=== PATIENT | female | born 1975 | race Caucasian/White ===

== ENCOUNTER 2017-06-14 11:05 | Inpatient (IN) | payer BC, OTHER ==
[~2017-06-14] VITALS: Ht 175.3 cm; Wt 63.5 kg
[2017-06-14] MEDS ORDERED: MAG HYDROX/AL HYDROX/SIMETH 30 ML LIQUID UDC PO PRN (21:15)
[2017-06-14] MEDS ORDERED: diphenhydrAMINE 50 MG CAPSULE PO PRN (21:15)
[2017-06-14] MEDS ORDERED: ACETAMINOPHEN 325 MG TABLET PO PRN (21:15)
[2017-06-14] MEDS ORDERED: HYDROXYZINE PAMOATE 25 MG CAPSULE PO PRN (21:15)
[2017-06-14] MEDS ORDERED: ONDANSETRON 4 MG/2 ML VIAL IM PRN (21:15)
[2017-06-14] MEDS ORDERED: LORAZEPAM 2 MG/1 ML VIAL IM PRN (21:15)
[2017-06-14] MEDS ORDERED: hydrALAZINE HCL 50 MG TABLET PO PRN (21:15)
[2017-06-14] MEDS ORDERED: MAGNESIUM HYDROXIDE 30 ML LIQUID UDC PO PRN (21:15)
[2017-06-14] MEDS ORDERED: LORAZEPAM 1 MG TABLET PO PRN (21:15)
[2017-06-14] MEDS ORDERED: LOPERAMIDE HCL 2 MG CAPSULE PO PRN ×2 (21:15)
[2017-06-14] MEDS ORDERED: MIRALAX 17 GM POWD.PACK PO PRN (21:15)
[2017-06-14] MEDS ORDERED: ONDANSETRON ODT 4 MG TAB.RAPDIS SL PRN (21:15)
[2017-06-14 21:50] VITALS: BP 126/75
--- NOTE | 2017-06-14 21:50 | NUR ---
Pre-Admission Pre-admission assessment performed in the intake department of [facility]. Pt is A&O x4. She uses a wheelchair brought from home due to weakness and unsteady gait r/t postural orthostatic tachycardia syndrome. She does not appear intoxicated and answers questions appropriately. Vital signs are B/P 126/74, HR 80, RR 16, O2 sat 100%, T 98.3, pain 0/10. She reports that she has been using Valium 10mg per day. Last used 5mg at 2130. Pt denies seizure history. [facility]
[2017-06-14] MEDS ORDERED: LORAZEPAM 1 MG TABLET PO SCH (22:30)
[2017-06-14 22:50] LABS: *URINE HCG, QUAL NEGATIVE (NEGATIVE)
[2017-06-14 22:59] LABS: *AMPHETAMINE, URINE NEGATIVE (NEGATIVE); *BARBITURATE, URINE NEGATIVE (NEGATIVE); *CANNABINOID, URINE NEGATIVE (NEGATIVE); *COCCAINE, URINE NEGATIVE (NEGATIVE); *OPIATE, URINE NEGATIVE (NEGATIVE); *PHENCYCLIDINE SCREEN,URINE NEGATIVE (NEGATIVE)
--- NOTE | 2017-06-14 23:15 | NUR ---
ADMISSION Pt is a 42 yo female who arrived on the [facility] at 2210 on 06/14/17 for medically supervised detox. She is A&O x4 and uses a wheelchair due to weakness and unsteady gait. She is ordered a 1:1 sitter for safety. Pt ambulates short distances with assistance. Body check performed by 2 SENIOR MARKET RESEARCH ANALYST's and skin check performed by nurse. Pt is cooperative and answers all questions appropriately. She has NKA, is full code status, and on a regular. Pt reports having wheat and dairy intolerance. She has a flat affect, depressed mood, and is tearful at times. Vital signs in intake are B/P 126/74, HR 80, RR 16, O2 sat 100%, T 98.3, pain 0/10. She is 5'9" and weighs 140lb. She reports PMH of postural orthostatic tachycardia syndrome diagnosed 07/2016, right carotid artery tear 2011, stroke 2011, right carotid artery stents x2 2011, gallstones, gastroparesis, sinus surgery, depression, anxiety, and panic attacks. Pt was in the ER 2x in the past one week due to panic attacks. She denies history of seizures. Pt states that she takes digestive enzymes at home but cannot recall the name. Lung sounds clear, PERRLA, brisk capillary refill, bowel sounds present, skin is warm, dry, and intact. Last BM was 06/13/17 and LMP was 05/22/17. Pt denies SI/HI. History of Use 1) Valium 10mg per day for the past 8 months. Last used 5mg at today at 2130 with a total of 10mg for the day. Pt has used BZD's since 05/2016. This is the patient's first time in treatment. Pt has not had a period of sobriety since starting BZD's. She does not smoke cigarettes. She decided to come to treatment because "It's been very hard on me, I'm getting weaker, I'm going nowhere". 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 Primary care physician is Dr. Eliane Soliman at [place]. CIWA on admission is 5. MD aware of patient's admission. She was educated regarding use of the call light and all questions answered. Fall and seizure precautions ordered. Bed is down with call light in reach.
[2017-06-14 23:30] VITALS: BP 107/63
[2017-06-14 23:34] LABS: ETHANOL < 3 MG/DL (0-0)
[2017-06-14 23:39] LABS: ALANINE AMINOTRANSFERASE 27 U/L (14-59); ALKALINE PHOSPHATASE 89 U/L (50-136); ASPARTATE AMINOTRANSFERASE 11 U/L (15-37); CARBON DIOXIDE 28 mmol/L (21-32); CHLORIDE 103 mmol/L (98-107); CREATININE 0.9 mg/dL (0.6-1.3); GLUCOSE 89 mg/dL (74-106); MAGNESIUM 2.1 mg/dL (1.8-2.4); POTASSIUM 3.5 mmol/L (3.5-5.1); TOTAL PROTEIN, SERUM 7.2 g/dL (6.4-8.2); UREA NITROGEN, BLOOD 18 mg/dL (7-18)
[2017-06-15] VITALS: BP 107/63
[2017-06-15 00:01] LABS: BASOPHILS % (AUTO) 0.5 % (0.0-2.0); EOSINOPHILS # (AUTO) 0.1 K/uL (0.0-0.7); EOSINOPHILS % (AUTO) 0.7 % (0.0-7.0); HEMATOCRIT 41.2 % (37-47); HEMOGLOBIN 14.5 G/DL (12.0-16.0); LYMPHOCYTES # (AUTO) 1.8 K/UL (0.8-4.8); LYMPHOCYTES % (AUTO) 23.7 % (20.5-51.5); MEAN CORPUSCULAR HEMOGLOBIN 31.3 UUG (27.0-31.0); MEAN CORPUSCULAR HGB CONC 35 g/dL (32.0-37.0); MONOCYTES # (AUTO) 0.6 K/UL (0.1-1.30); MONOCYTES % (AUTO) 7.2 % (0.0-11.0); NEUTROPHILS # (AUTO) 5.2 K/UL (1.8-8.9); NEUTROPHILS % (AUTO) 67.9 % (38.5-71.5); PLATELET COUNT (AUTO) 180 K/UL (150-450); RED BLOOD CELL COUNT(AUTO) 4.63 MIL/UL (4.2-5.4); WHITE BLOOD COUNT (AUTO) 7.7 K/UL (4.0-11.2)
[2017-06-15 00:03] LABS: THYROID STIMULATING HORMONE 2.885 mIU/mL (0.358-3.740)
[2017-06-15 04:00] VITALS: BP 118/68
[2017-06-15] MEDS ORDERED: LORAZEPAM 1 MG TABLET ONE (04:35)
[2017-06-15] MEDS ORDERED: CYAN10009 PO (06:03)
[2017-06-15] MEDS ORDERED: CHOL400T58 PO (06:03)
--- NOTE | 2017-06-15 07:15 | NUR ---
Start of shift note SBAR report rcv'd. Pt was admitted for benzo dependence. Pt states that she has NKDA, but an intolerance to wheat and dairy. Pt has a PMHx of postural orthostatic tachycardia syndrome, carotid artery tear in 2011, stroke in 2011, carotid artery stent in 2012, gallstones, gastropareis, anxiety, depression, and panic attacks. Pt is on a 1:1 for safety and uses her own personal wheel chair. Pt is scheduled to start a 4 day ativan taper. Per report, pt did not have any PRN medications over night. At this time, pt is resting in bed, sitter at bedside, no complaints at this time. Will continue to monitor pt. All needs addressed at this time.
[2017-06-15 08:00] VITALS: BP 107/66
[2017-06-15] MEDS: MULTIVITAMINS,THERAPEUTIC TABLET PO SCH (08:52)
[2017-06-15] MEDS ORDERED: LORAZEPAM 1 MG TABLET PO SCH (09:00)
[2017-06-15] MEDS ORDERED: TUBERCULIN,PURIF.PROT.DERIV. 5 TU/0.1 ML TEST ID ONE (09:00)
[2017-06-15 12:00] VITALS: BP 125/74
[2017-06-15] MEDS ORDERED: GABAPENTIN 300 MG CAPSULE PO SCH ×2 (15:00→21:00)
[2017-06-15 16:00] VITALS: BP 106/66
--- NOTE | 2017-06-15 18:15 | NUR ---
MD communication Pt requested to have her digestive enzyme pills. Dr Luna notified, ordered for one time order of 1 tab of her digestive enzymes PO x 1 now. Orders entered, MD is driving and unable to enter orders.
[2017-06-15] MEDS ORDERED: HOME MED MISCELLANEOUS PO ONE (18:30)
--- NOTE | 2017-06-15 18:33 | NUR ---
communication Pt requesting to have "a smaller dose of gabapentin tonight". Dr Luna notified, ordered to hold gabapentin 300mg PO tonight, and to administer gabapentin 200mg PO HS x 1. Orders entered, MD unable to enter orders d/t driving.
[2017-06-15] MEDS ORDERED: PATIENT MAY USE OWN MED- MD OK PO ONE (19:00)
--- NOTE | 2017-06-15 19:19 | NUR ---
End of shift note Pt was admitted for benzo dependence. Pt states that she has NKDA, but an intolerance to wheat and dairy,however she states she can tolerate certain foods with wheat or dairy. Pt has a PMHx of postural orthostatic tachycardia syndrome, carotid artery tear in 2011, stroke in 2011, carotid artery stent in 2012, gallstones, gastropareis, anxiety, depression, and panic attacks. Pt is on a 1:1 for safety and uses her own personal wheel chair. Pt was able to get up and ambulate several times during the shift to the bathroom and shower with assistance. Pt is scheduled to discharge. Pt is on PRN medication to manage her s/s of withdrawal. Pt is resting in bed, pt has no complaints at this time. SBAR report endorsed to nurse.
--- NOTE | 2017-06-15 19:45 | NUR ---
START OF SHIFT Received report from day shift nurse. Pt lying in bed watching TV with a 1:[address] for safety due to weakness and unsteady gait. She is a 42 yo female admitted to [facility] on 06/14 for BZD dependence. NKA, full code status, and on a regular diet. Pt does report dairy and wheat intolerance. She ambulates short distances with assistance and uses a wheelchair as needed. PMH of postural orthostatic tachycardia syndrome, carotid artery tear 2011, stroke 2011, carotid artery stent x2 2011, gallstones, gastroparesis, anxiety, depression, and panic attacks. On admission she reported using Valium 10mg per day. Ativan taper discontinued during the day. PRN Ativan available. She reports headache and anxiety. Fall and seizure precautions in place. Bed is down with call light in reach.
[2017-06-15 20:00] VITALS: BP 134/78
[2017-06-15] MEDS: LORAZEPAM 1 MG TABLET PO PRN (20:07)
--- NOTE | 2017-06-15 20:10 | NUR ---
PRN Ativan administration Pt reports anxiety and headache. She states headache is r/t BZD withdrawal. Denies the need for pain medication and prefers a cold pack. CIWA 7. PRN Ativan administered.
[2017-06-15] MEDS ORDERED: GABAPENTIN 100 MG CAPSULE PO ONE (21:00)
--- NOTE | 2017-06-15 21:10 | NUR ---
PRN Ativan reassessment PRN Ativan effective. Pt is lying in bed resting with eyes closed. Respirations even and unlabored. Safety measures in place.
[2017-06-16] VITALS: BP 118/64
--- NOTE | 2017-06-16 | NUR ---
0000 CIWA deferred CIWA ordered Q4HWA. Pt is lying in bed resting with eyes closed. Vital signs obtained. Safety measures in place.
[2017-06-16 04:00] VITALS: BP 105/59
--- NOTE | 2017-06-16 04:00 | NUR ---
0400 CIWA deferred CIWA ordered Q4HWA. Pt is lying in bed resting with eyes closed. Vital signs obtained. Safety measures in place.
--- NOTE | 2017-06-16 07:10 | NUR ---
END OF SHIFT Report provided to day shift nurse. Pt lying in bed resting with a 1:[address] for safety[address] She is a 42 yo female admitted to [facility] on 06/14 for BZD dependence. NKA, full code status, and on a regular diet. Pt does report dairy and wheat intolerance. PMH of postural orthostatic tachycardia syndrom, carotid artery tear 2011, stroke 2011, carotid artery stent x2 2011, gallstones, gastroparesis, anxiety, depression, and panic attacks. On admission she reported using Valium 10mg per day. Taper was discontinued and PRN Ativan is available. Last CIWA was 7. PRN Ativan administered. She drank 950mL and slept for 9 hours. Fall and seizure precautions in place. Bed is down with call light in reach.
--- NOTE | 2017-06-16 07:43 | NUR ---
BEGINNING OF SHIFT Patient endorsement report received from night auditor nurse, all pertinent information discussed. patient is a 42 year old female admitted on: 06/14/2017 with admitting Dx: bzo dependence. Patient currently under close observation, no ongoing taper, will monitor for s/sx of withdrawal closely. Patient continues on 1:1 as ordered for safety precautions. Per night auditor patient patient received PRN Valium, per night auditor medications were effective, patient slept for 9 hours. patient with last ciwa score of: 7. patient received awake, alert and oriented x4, educated regarding plan of care for the day and medication regimen with good verbal understanding. Safety measures in place. call light kept with in reach, will continue to monitor.
[2017-06-16 08:11] LABS: HEPATITIS B SURFACE AG Negative (Negative)
[2017-06-16 08:42] VITALS: BP 125/69
[2017-06-16] MEDS: LORAZEPAM 1 MG TABLET PO PRN (08:48)
[2017-06-16] MEDS: MULTIVITAMINS,THERAPEUTIC TABLET PO SCH (08:48)
--- NOTE | 2017-06-16 08:48 | NUR ---
PRN ATIVAN Patient presented with: tremors that can be felt but nto seen, mild sweating, and moderate anxiety and mild restlessness with ciwa score of: 9, per MD orders patient was administered Ativan 1 mg PO as ordered, will monitor effectiveness of medication.
[2017-06-16] MEDS ORDERED: GABAPENTIN 300 MG CAPSULE PO SCH (09:00)
[2017-06-16] MEDS ORDERED: PATIENT MAY USE OWN MED- MD OK PO SCH ×2 (09:00)
[2017-06-16] MEDS ORDERED: LORAZEPAM 1 MG TABLET PO SCH (09:00)
--- NOTE | 2017-06-16 09:48 | NUR ---
ATIVAN REASSESSMENT medication effective, decrease in ciwa score. current ciwa score of: 5 presenting with: tremors that can be felt but not seen, barely sweating and anxiety with ciwa score of: 5, will continue to monitor.
[2017-06-16 13:02] VITALS: BP 120/71
[2017-06-16] MEDS: [UNRECOGNIZED DRUG - OTHER] PO SCH ×2 (13:30→17:52)
[2017-06-16] MEDS: GABAPENTIN 100 MG CAPSULE PO SCH ×2 (14:10→20:54)
--- NOTE | 2017-06-16 16:13 | NUR ---
Therapist prompted client about group times. Client stated she most likely won't go to groups because it is "over stimulating" for her.
[2017-06-16 17:33] VITALS: BP 112/75
[2017-06-16] MEDS ORDERED: DIPH50CA37 PO (17:36)
[2017-06-16] MEDS ORDERED: GABA-532 PO (17:36)
[2017-06-16] MEDS ORDERED: IBUP-1953 PO (17:36)
[2017-06-16] MEDS ORDERED: HYDR-3895 PO (17:36)
[2017-06-16] MEDS: IBUPROFEN 400 MG TABLET PO PRN (17:52)
--- NOTE | 2017-06-16 17:52 | NUR ---
PRN MOTRIN Patient c/o pain 02/20, administered Motrin as ordered, will monitor effectiveness of medication.
--- NOTE | 2017-06-16 18:52 | NUR ---
MOTRIN REASSESSMENT Patient reports medication effective, current pain level 2/10, tolerable as per patient, will continue to monitor.
--- NOTE | 2017-06-16 18:58 | NUR ---
END OF SHIFT Patient alert and oriented x4, vital signs were stable during shift. Patient compliant with therapeutic plan of care during shift. Patient currently with no ongoing taper, was under close observation during shift. Patient is scheduled to be discharged tomorrow morning, noted self motivated towards sobriety. During shift administered PRN Ativan as ordered, medication effective. 0900 assessment patient presented with: tremors that can be felt but not seen, mild sweats, and moderate anxiety, and mild restlessness with ciwa score of: 9; 1300 assessment patient presented with: tremors that can be felt but not seen, barely sweating and mild anxiety with ciwa score of: 3; 1700 assessment patient presented with: tremors that can be felt but not seen, and mild anxiety with ciwa score of: 2. Patient compliant with plan of care, patient continues on 1:1 for safety precautions, patient was seen by PT during shift. Patient denies SI/HI. Patient encouraged adequate PO fluid intake as tolerated. Patient encouraged adequate PO fluid intake as tolerated. Safety measures in place. call light kept with in reach, safety measures in place. will continue to monitor closely. patient endorsed to shift supervisor melting nurse, all pertinent information discussed.
--- NOTE | 2017-06-16 18:58 | NUR ---
START OF SHIFT NOTE: Patient is a 42 year old female admitted to [facility] on 06/14/2017 for Valium dependence. Patient d/c- 5 Day Ativan Taper. Patient reports Allergy to Wheat dairy, is on Full Code, Regular Diet, is Fall and Seizures Precautions. PMH: Anxiety; Depression; Postural Orthostatic Tachycardia Syndrome, Carotid artery tear (2011), Carotid artery stent x2 (2011), Gallstones, Gastroparesis, Panic Attacks, Sinus Stroke (2011) Patient denies History of Seizures. Patient reports substance use: "Valium 10 mg every day for the last 8 months. Last used 10 mg Po on 06/14/2017". Upon endorsement by day shift nurse, patient is alert and oriented x4. VS: T: 98'0, BP: 118/72, HR:86, RR:18, RA O2Sat: 100%. Pain level/headache "12/21". CIWA 3. Patient denies SI/HI. Respirations unlabored and even. Patient denies SOB and chest pain. Lungs Sounds are clear bilaterally. Bowel Sounds active in all x4 quadrants. Abdomen is soft and non-tender. PERRLA, brisk capillary refill, director organizational equal and strong. Skin is intact, warm, and dry to touch. Encourage fluids as tolerated. All needs met. Safety measures on place. Patient has 1:1 sitter at bedside for safety/unstable gait. Call light within reach, bed in lowest position and locked, padded rails up bilaterally rails up bilaterally. Patient endorsed by day shift nurse. Report received. Will continue to monitor closely. Addendum: 06/17/17 at 0322 by AYAAN HERNANDEZ RN Patient reports Allergy to Wheat, Dairy.
[2017-06-16 20:00] VITALS: BP 118/72
[2017-06-17] VITALS: BP 107/62
[2017-06-17] MEDS: IBUPROFEN 400 MG TABLET PO PRN ×2 (00:35→04:59)
--- NOTE | 2017-06-17 00:35 | NUR ---
PRN MOTRIN 400 MG 1 TAB PO ADMINISTRATION Patient c/o headache. Patient reports pain level "5/10". PRN Motrin 400 mg 1 tab PO administrated with full glass of water as ordered. Patient tolerated well. All needs met. Patient has 1:1 sitter at bedside for safety/unstable gait. Call light within reach, bed in lowest position and locked, padded rails up bilaterally rails up bilaterally. Will continue to monitor closely.
--- NOTE | 2017-06-17 01:35 | NUR ---
RE-ASSESSMENT Patient is sleeping. Respirations even and unlabored. RR 14. PRN Motrin 400 mg 1 tab PO administrated to patient @0035 for headache was effective. All needs met. Safety measures on place. Patient has 1:1 sitter at bedside for safety/unstable gait. Call light within reach, bed in lowest position and locked, padded rails up bilaterally rails up bilaterally. Will continue to monitor closely.
[2017-06-17 04:00] VITALS: BP 113/59
--- NOTE | 2017-06-17 04:59 | NUR ---
PRN MOTRIN 400 MG 1 TAB PO ADMINISTRATION Patient c/o headache. Patient reports pain level "6/10". PRN Motrin 400 mg 1 tab PO administrated with full glass of water as ordered. Patient tolerated well. All needs met. Patient has 1:1 sitter at bedside for safety/unstable gait. Call light within reach, bed in lowest position and locked, padded rails up bilaterally rails up bilaterally. Will continue to monitor closely.
--- NOTE | 2017-06-17 05:59 | NUR ---
RE-ASSESSMENT Patient is sleeping. Respirations even and unlabored. RR 16. PRN Motrin 400 mg 1 tab PO administrated to patient @0459 for headache was effective. All needs met. Patient has 1:1 sitter at bedside for safety/unstable gait. Call light within reach, bed in lowest position and locked, padded rails up bilaterally rails up bilaterally. Will continue to monitor closely.
--- NOTE | 2017-06-17 06:54 | NUR ---
END OF SHIFT NOTE: Patient is a 42 year old female admitted to [facility] on 06/14/2017 for Benzodiazepines dependence. Patient remains compliant with treatment, medications, and diet regime. Patient reports Allergy to Wheat, Dairy, is on Full Code, Regular Diet, is Fall and Seizures Precautions. PMH: Anxiety; Depression; Postural Orthostatic Tachycardia Syndrome, Carotid artery tear (2011), Carotid artery stent x2 (2011), Gallstones, Gastroparesis, Panic Attacks, Sinus Stroke (2011). Patient denies History of Seizures. Last VS @0400: T: 97.7, BP: 113/59, HR:65, RR:14, RA O2Sat: 99%. Patient c/o headache "02/20". CIWA taken when patient's alert during the night. Last CIWA 7 @0400. Patient denies SI/HI. Respirations unlabored and even. Abdomen is soft and non-tender. Skin is intact, warm, and dry to touch. Encourage fluids as tolerated. PRN Motrin 400 mg 1 tab PO x2 administrated to patient @0035 and @0459 for headache was effective. Patient educated non-pharmacological pain relief techniques. Patient return knowledge back by verbalized understanding. Patient slept 1.5 hours, intake1,500 ml, voided x3. All needs met. 1:1 sitter at bedside as ordered for safety/unstable gait. Safety measures on place. Call light within reach, bed in lowest position and locked, padded rails up bilaterally rails up bilaterally. Patient endorsed by day shift nurse.
--- NOTE | 2017-06-17 07:10 | NUR ---
Start of shift note SBAR report rcv.'d. Pt was admitted for benzo dependence. Pt has PMHx of postural orthostatic tachycardia syndrome, R carotid artery tear, sinus sx, stroke, carotid stent, gallstones, gastroparesis, anxiety, depression and panic attacks. Pt uses a personal wheel chair. Pt has no complaints at this time. Pt is scheduled to discharge today. Will continue to monitor pt.
[2017-06-17 08:00] VITALS: BP 116/70
[2017-06-17] MEDS: MULTIVITAMINS,THERAPEUTIC TABLET PO SCH (08:31)
[2017-06-17] MEDS: GABAPENTIN 100 MG CAPSULE PO SCH (08:31)
[2017-06-17] MEDS: [UNRECOGNIZED DRUG - OTHER] PO SCH (08:33)
[2017-06-17] MEDS ORDERED: LORAZEPAM 1 MG TABLET PO SCH (09:00)
--- NOTE | 2017-06-17 09:00 | NUR ---
PRN administration Pt c/o constipation, states she hasn't had a BM in 5 days. Administered miralax per MD order. Abdomen is soft and nontender, pt is able to pass gas.
[2017-06-17 10:38] VITALS: BP_SYST 121; BP_SYST 126; BP_SYST 129; BP_DIAS 75; BP_DIAS 86; BP_DIAS 89
--- NOTE | 2017-06-17 11:05 | NUR ---
Discharge Note Pt was admitted for benzo dependence. Pt VS are WNL. Pt has a CIWA of 4 with most of her s/s being from her chronic illness. Pt has no had a BM, Dr Luna is aware, instructed to give PRN miralax, and to have pt follow up outpatient. Pt instructed to follow up with a manager employee benefits outpatient. Pt verbalized her understanding. Pt has no further complaints. All needs addressed at this time. Prior to discharge Dr Luna ordered orthostatic BP, results are WNL and Dr Luna stated pt is cleared for discharge. pt states that she feels ready for discharge, pt prescription, discharge packet and all belongings returned to pt. All needs addressed at this time. Pt ID band removed, pt used personal w/c with [employer] off of unit, left via [facility] [employer] [facility] for [employer].
[2017-06-18] MEDS ORDERED: LORAZEPAM 1 MG TABLET PO SCH (09:00)
== END 2017-06-17 11:05 | disposition other institution (70) | DRG 895 ==
LOC: SRC 20:13
PROVIDERS: ADMIT Internal Medicine; ATTEND Internal Medicine
PROC: HZ2ZZZZ Detoxification Services for Substance Abuse Treatment (ICD-10-PCS; principal; 2017-06-14)
PROC: HZ31ZZZ Individual Counseling for Substance Abuse Treatment, Behavioral (ICD-10-PCS; 2017-06-16)
DX: F13.230 Sedative, hypnotic or anxiolytic dependence with withdrawal, uncomplicated (principal); R17 Unspecified jaundice; F32.9 Major depressive disorder, single episode, unspecified; F41.9 Anxiety disorder, unspecified; I49.8 Other specified cardiac arrhythmias; I69.393 Ataxia following cerebral infarction; F60.89 Other specific personality disorders
CPT/HCPCS: 36415; 80307; 80346; 83735; 84443; 84703; 85025; 86580; 86592; 86705; 86803; 87340; 87806; 93005; 97530; A4663; G0480